=== PATIENT | male | born 1995 | race Two or more races ===

== ENCOUNTER 2020-09-05 13:25 | Emergency (ER) | payer OTHER ==
[~2020-09-05] VITALS: Ht 182.9 cm; Wt 75.3 kg
== END 2020-09-05 20:03 | disposition home or self-care (01) ==
LOC: ER 13:25
DX: K29.70 Gastritis, unspecified, without bleeding (principal)

== ENCOUNTER 2022-04-01 15:57 | Emergency (ER) | payer OTHER ==
[~2022-04-01] VITALS: Ht 182.9 cm; Wt 79.8 kg
== END 2022-04-01 17:37 | disposition home or self-care (01) ==
LOC: ER 15:57
DX: M94.0 Chondrocostal junction syndrome [Tietze] (principal); Z88.0 Allergy status to penicillin